=== PATIENT | female | born 2000 | race Caucasian/White ===

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

== ENCOUNTER 2021-10-02 07:55 | Emergency (ER) | payer BC, OTHER ==
[2021-10-02 08:10] VITALS: RESP 18; TEMP 97.9
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
[2021-10-02 09:12] LABS: Basophils % (A) 0 %; Eosinophils # (A) 0.1 k/uL (0-0.7); Eosinophils % (A) 1 %; HCT 41.8 % (34.0-46.0); Lymphocytes # (A) 2.2 k/uL (1.0-4.8); Lymphocytes % (A) 21 %; MCH 30.9 pg (25.0-35.0); MCHC 35.9 g/dL (31.0-37.0); MCV 86.1 fL (80.0-100.0); Mean Platelet Volume 7.9; Monocytes # (A) 0.5 k/uL (0-1.0); Monocytes % (A) 5 %; Neutrophils # (A) 7.4 k/uL (1.3-7.7); Neutrophils % (A) 71 %; Platelet Count 255 k/uL (150-450); RBC 4.86 m/uL (3.80-5.40); RDW 12.8 % (11.5-15.5); WBC 10.4 k/uL (3.8-10.6)
[2021-10-02 09:32] LABS: ALT 26 U/L (4-34); AST 30 U/L (14-36); African American GFR (CKD) >90 (>60 ml/min/1.73 sqM); Albumin 4.9 g/dL (3.5-5.0); Alcohol <10 mg/dL; Alkaline Phosphatase 78 U/L (38-126); Anion Gap 12 mmol/L; Blood Urea Nitrogen 8 mg/dL (7-17); Carbon Dioxide 21 mmol/L (22-30); Chloride 105 mmol/L (98-107); Creatine Kinase 93 U/L (30-135); Glucose 119 mg/dL (74-99); Lipase 59 U/L (23-300); Magnesium 1.7 mg/dL (1.6-2.3); Non-African American GFR(CKD) >90 (>60 ml/min/1.73 sqM); Potassium 3.8 mmol/L (3.5-5.1); Sodium 138 mmol/L (137-145); Total Bilirubin 0.5 mg/dL (0.2-1.3); Total Protein 8.5 g/dL (6.3-8.2)
[2021-10-02 10:06] LABS: Amphetamine Screen,Urine Not Detected (NotDetected); Barbiturate Screen,Urine Not Detected (NotDetected); Benzodiazepines Screen,Urine Not Detected (NotDetected); Cocaine Screen,Urine Not Detected (NotDetected); Methadone Screen, Urine Not Detected (NotDetected); Opiate Screen,Urine Not Detected (NotDetected); Oxycodone Screen, Urine Not Detected (NotDetected); Phencyclidine Screen,Urine Not Detected (NotDetected); Tricyclic Antidepressant,Urine Not Detected (NotDetected); Urn Cannabinoid Scrn Detected (NotDetected)
[2021-10-02 11:40] VITALS: BP 124/77; PULSE 97
[2021-10-03 00:39] LABS: Urine Barbiturate Negative (Negative); Urine Cocaine Negative (Negative); Urine Methadone Negative (Negative); Urine Opiates Negative (Negative); Urine Phencyclidine Negative (Negative)
== END 2021-10-02 11:40 | disposition home or self-care (01) ==
LOC: EC 07:55
DX: R00.2 Palpitations (principal); R11.0 Nausea; T50.905A Adverse effect of unspecified drugs, medicaments and biological substances, initial encounter
CPT/HCPCS: 36415; 80053; 80306; 80320; 82550; 83690; 83735; 85025; 99284

== ENCOUNTER 2024-03-12 20:07 | Emergency (ER) | payer BC ==
[2024-03-12 20:43] VITALS: RESP 20; TEMP 98
--- NOTE | 2024-03-12 21:07 | ED ---
Abdominal Pain HPI - General Source: patient, RN notes reviewed Mode of arrival: ambulatory Limitations: no limitations <Jessica Killian - Last Filed: 03/12/24 21:04> <Mor Hagen - Last Filed: 03/12/24 23:33> - General Chief Complaint: Abdominal Pain Stated Complaint: abd pain cramping 5 weeks Time Seen by Provider: 03/12/24 20:20 - History of Present Illness Initial Comments: Quick Note-this is a 23-year-old female presents emergency department chief complaint of diffuse abdominal pain and cramping. Patient states that she did an at home test on 03/08 which came back positive. Patient states that her last menstrual period was 02/11/2024. Patient denies vaginal bleeding or previous . (Jessica Killian) Dictation was produced using [employer] dictation software. please excuse any grammatical, word or spelling errors. Chief Complaint: 23-year-old female with pelvic pain History of Present Illness: Patient is a 23-year-old female she is found that she was within the last couple weeks on a urine test at primary care physician's office. Today at around noon she started to develop some pelvic cramping. Patient was concerned decided come to the emergency department to be evaluated. No vaginal discharge. At the time of my evaluation patient states that her pain had resolved. She believes that she is approximately 5 weeks . The ROS documented in this emergency department record has been reviewed and confirmed by me. Those systems with pertinent positive or negative responses have been documented in the HPI. All other systems are other negative and/or noncontributory. (Mor Hagen) - Related Data Home Medications Medication Instructions Recorded Confirmed No Known Home Medications 10/02/21 10/02/21 Allergies Allergy/AdvReac Type Severity Reaction Status Date / Time No Known Allergies Allergy Verified 10/02/21 09:09 Review of Systems ROS Other: All systems not noted in ROS Statement are negative. <Jessica Killian - Last Filed: 03/12/24 21:04> ROS Other: All systems not noted in ROS Statement are negative. <Mor Hagen - Last Filed: 03/12/24 23:33> ROS Statement: Those systems with pertinent positive or pertinent negative responses have been documented in the HPI. Past Medical History Past Medical History: No Reported History History of Any Multi-Drug Resistant Organisms: None Reported Past Surgical History: No Surgical Hx Reported Past Psychological History: No Psychological Hx Reported Smoking Status: Never smoker Past Alcohol Use History: None Reported Past Drug Use History: None Reported <Jessica Killian - Last Filed: 03/12/24 21:04> General Exam Limitations: no limitations <Jessica Killian - Last Filed: 03/12/24 21:04> <Mor Hagen - Last Filed: 03/12/24 23:33> - General Exam Comments Initial Comments: Visual Physical Exam Vital signs reviewed General: Well-appearing, nontoxic, no acute distress. Head: Normocephalic, atraumatic Eyes: PERRLA, EOMI ENT: Airway patent Chest: Nonlabored breathing Skin: No visual rash, normal skin tone Neuro: Alert and oriented 3 Musculoskeletal: No gross abnormalities (Jessica Killian) PHYSICAL EXAM: General Impression: Alert and oriented x3, not in acute distress HEENT: Normocephalic atraumatic, extra-ocular movements intact, pupils equal and reactive to light bilaterally, mucous membranes moist. Cardiovascular: Heart regular rate and rhythm Chest: Able to complete full sentences, no retractions, no tachypnea Abdomen: abdomen soft, non-tender, non-distended, no organomegaly Musculoskeletal: Pulses present and equal in all extremities, no peripheral edema Motor: no focal deficits noted Neurological: CN II-XII grossly intact, no focal motor or sensory deficits noted Skin: Intact with no visualized rashes Psych: Normal affect and mood (Mor Hagen) Course Vital Signs 03/12/24 20:19 Temperature 98 F Pulse Rate 102 H Respiratory 20 Rate Blood Pressure 154/74 O2 Sat by Pulse 100 Oximetry Medical Decision Making <Jessica Killian - Last Filed: 03/12/24 21:04> - Lab Data Result diagrams: 03/12/24 21:32 03/12/24 21:32 <Mor Hagen - Last Filed: 03/12/24 23:33> - Medical Decision Making I completed the quick note portion of this chart signed Jessica Killian PA-C (Jessica Killian) Was pt. sent in by a medical professional or institution (MEENA Pearce, LABOR AND DELIVERY REGISTERED NURSE, urgent care, hospital, or care home...) When possible be specific @ -No Did you speak to anyone other than the patient for history (EMS, parent, family, police, friend...)? What history was obtained from this source @ -No Did you review nursing and triage notes (agree or disagree)? Why? @ -I reviewed and agree with nursing and triage notes Were old charts reviewed (outside hosp., previous admission, EMS record, old EKG, old radiological studies, urgent care reports/EKG's, care home records)? Report findings @ -No old charts were reviewed Differential Diagnosis (chest pain, altered mental status, abdominal pain women, abdominal pain men, vaginal bleeding, musculoskeletal, weakness, fever, dyspnea, syncope, headache, dizziness, GI bleed, back pain, seizure, CVA, palpatations, mental health)? @ -Differential Abdominal Pain Women: Appendicitis, Cholecystitis, diverticulosis, ischemic bowel, pancreatitis, hepatitis, UTI, gastroenteritis, AAA, incarcerated hernia, bowel obstruction, constipation, inflammatory bowel, hepatitis, peptic ulcer disease, splenic infarction, perforated viscus, vulvitis, ovarian torsion, PID, kidney stone, placenta abruption, this is not meant to be an all-inclusive list EKG interpreted by me (3pts min.). @ -None done X-rays interpreted by me (1pt min.). @ -None done CT interpreted by me (1pt min.). @ -None done U/S interpreted by me (1pt. min.). @ -Ultrasound pelvis shows no IUP What testing was considered but not performed or refused? (CT, X-rays, U/S, labs)? Why? @ -None What meds were considered but not given or refused? Why? @ -None Did you discuss the management of the patient with other professionals (professionals i.e. MEENA Pearce, LABOR AND DELIVERY REGISTERED NURSE, lab, RT, psych nurse, socially responsible investment adviser, acupressure therapist, teacher, aviation tactical readiness officer, high risk case manager)? Give summary @ -No Was smoking cessation discussed for >3mins.? @ -No Was critical care preformed (if so, how long)? @ -No Were there social determinants of health that impacted care today? How? (Homelessness, low income, unemployed, alcoholism, drug addiction, transportation, low edu. Level, literacy, decrease access to med. care, [facility], rehab)? @ -No Was there de-escalation of care discussed even if they declined (Discuss DNR or withdrawal of care, Hospice)? DNR status @ -No What co-morbidities impacted this encounter? (DM, HTN, Smoking, COPD, CAD, Cancer, CVA, ARF, Chemo, Hep., AIDS, mental health diagnosis, sleep apnea, morbid obesity)? @ -None Was patient admitted / discharged? Hospital course, mention meds given and route, prescriptions, significant lab abnormalities, going to OR and other pertinent info. @ -23-year-old female allegedly presents with pelvic pain. Vital signs stable. Patient well-appearing patient and symptomatic at the bedside. Beta quant is 144. Ultrasound pelvis is unremarkable. Patient reevaluated b edside 1130 in stable medical addition. Patient given prescription for 48-hour beta quant. Advised follow-up with CONFERENCE CENTER COORDINATOR. Return precautions discussed. Undiagnosed new problem with uncertain prognosis? @ -No Drug Therapy requiring intensive monitoring for toxicity (Heparin, Nitro, Insulin, Cardizem)? @ -No Were any procedures done? @ -No Diagnosis/symptom? Acute, or Chronic, or Acute on Chronic? Uncomplicated (without systemic symptoms) or Complicated (systemic symptoms)? @ -Pelvic pain in Side effects of treatment? @ -No Exacerbation, Progression, or Severe Exacerbation? @ -No Poses a threat to life or bodily function? How? (Chest pain, USA, [place], pneumonia, PE, COPD, DKA, ARF, appy, cholecystitis, CVA, Diverticulitis, Homicidal, Suicidal, threat to staff... and all critical care pts) @ -No (Mor Hagen) - Lab Data Lab Results 03/12/24 03/12/24 03/12/24 Range/Units 20:41 20:41 21:32 WBC 11.0 H (3.8-10.6) k/uL RBC 5.03 (3.80-5.40) m/uL Hgb 14.5 (11.4-16.0) gm/dL Hct 45.2 (34.0-46.0) % MCV 89.8 (80.0-100.0) fL MCH 28.9 (25.0-35.0) pg MCHC 32.2 (31.0-37.0) g/dL RDW 12.7 (11.5-15.5) % Plt Count 210 (150-450) k/uL MPV 8.9 Neutrophils % 70 % Lymphocytes % 21 % Monocytes % 6 % Eosinophils % 1 % Basophils % 1 % Neutrophils # 7.8 H (1.3-7.7) k/uL Lymphocytes # 2.3 (1.0-4.8) k/uL Monocytes # 0.7 (0-1.0) k/uL Eosinophils # 0.1 (0-0.7) k/uL Basophils # 0.1 (0-0.2) k/uL Sodium (137-145) mmol/L Potassium (3.5-5.1) mmol/L Chloride (98-107) mmol/L Carbon Dioxide (22-30) mmol/L Anion Gap mmol/L BUN (7-17) mg/dL Creatinine (0.52-1.04) mg/dL Est GFR (CKD-EPI)AfAm (>60 ml/min/1.73 sqM) Est GFR (CKD-EPI)NonAf (>60 ml/min/1.73 sqM) Glucose (74-99) mg/dL Calcium (8.4-10.2) mg/dL Total Bilirubin (0.2-1.3) mg/dL AST (14-36) U/L ALT (4-34) U/L Alkaline Phosphatase (38-126) U/L Total Protein (6.3-8.2) g/dL Albumin (3.5-5.0) g/dL HCG, Quant mIU/mL Urine Color Yellow Urine Appearance Slightly Cloudy H (Clear) Urine pH 5.0 (5.0-8.0) Ur Specific [place] 1.030 (1.001-1.035) Urine Protein Negative (Negative) Urine Glucose (UA) Negative (Negative) Urine Ketones Negative (Negative) Urine Blood Negative (Negative) Urine Nitrite Negative (Negative) Urine Bilirubin Negative (Negative) Urine Urobilinogen <2.0 (<2.0) mg/dL Ur Leukocyte Esterase Negative (Negative) Urine RBC 3 (0-5) /hpf Urine WBC 1 (0-5) /hpf Ur Squamous Epith Cells 4 (0-4) /hpf Calcium Oxalate Crystal Many H (None) /hpf Urine Bacteria Rare H (None) /hpf Urine Mucus Occasional H (None) /hpf Urine HCG, Qual Detected (Not Detectd) 03/12/24 Range/Units 21:32 WBC (3.8-10.6) k/uL RBC (3.80-5.40) m/uL Hgb (11.4-16.0) gm/dL Hct (34.0-46.0) % MCV (80.0-100.0) fL MCH (25.0-35.0) pg MCHC (31.0-37.0) g/dL RDW (11.5-15.5) % Plt Count (150-450) k/uL MPV Neutrophils % % Lymphocytes % % Monocytes % % Eosinophils % % Basophils % % Neutrophils # (1.3-7.7) k/uL Lymphocytes # (1.0-4.8) k/uL Monocytes # (0-1.0) k/uL Eosinophils # (0-0.7) k/uL Basophils # (0-0.2) k/uL Sodium 139 (137-145) mmol/L Potassium 3.9 (3.5-5.1) mmol/L Chloride 106 (98-107) mmol/L Carbon Dioxide 25 (22-30) mmol/L Anion Gap 8 mmol/L BUN 7 (7-17) mg/dL Creatinine 0.61 (0.52-1.04) mg/dL Est GFR (CKD-EPI)AfAm >90 (>60 ml/min/1.73 sqM) Est GFR (CKD-EPI)NonAf >90 (>60 ml/min/1.73 sqM) Glucose 101 H (74-99) mg/dL Calcium 9.8 (8.4-10.2) mg/dL Total Bilirubin 0.4 (0.2-1.3) mg/dL AST 26 (14-36) U/L ALT 28 (4-34) U/L Alkaline Phosphatase 63 (38-126) U/L Total Protein 8.5 H (6.3-8.2) g/dL Albumin 5.0 (3.5-5.0) g/dL HCG, Quant 144.9 mIU/mL Urine Color Urine Appearance (Clear) Urine pH (5.0-8.0) Ur Specific [place] (1.001-1.035) Urine Protein (Negative) Urine Glucose (UA) (Negative) Urine Ketones (Negative) Urine Blood (Negative) Urine Nitrite (Negative) Urine Bilirubin (Negative) Urine Urobilinogen (<2.0) mg/dL Ur Leukocyte Esterase (Negative) Urine RBC (0-5) /hpf Urine WBC (0-5) /hpf Ur Squamous Epith Cells (0-4) /hpf Calcium Oxalate Crystal (None) /hpf Urine Bacteria (None) /hpf Urine Mucus (None) /hpf Urine HCG, Qual (Not Detectd) Disposition <Jessica Killian - Last Filed: 03/12/24 21:04> Is patient prescribed a controlled substance at d/c from ED?: No Time of Disposition: 23:33 <Mor Hagen - Last Filed: 03/12/24 23:33> Clinical Impression: Disposition: HOME SELF-CARE Condition: Good Instructions (If sedation given, give patient instructions): (ED) Additional Instructions: go to lab for 48 hour hcg blood test Referrals: Jamie Martinez MD [STAFF PHYSICIAN] - 1-2 days
[2024-03-12 21:16] LABS: Bacteria,Urine Rare /hpf; Calcium Oxalate Crystals,Urine Many /hpf; Mucus,Urine Occasional /hpf; RBC,Urine 3 /hpf (0-5); Squamous Epithelial Cell,Urine 4 /hpf (0-4); WBC,Urine 1 /hpf (0-5)
[2024-03-12 21:19] LABS: Appearance,Urine Slightly Cloudy (Clear); Color,Urine Yellow
[2024-03-12 21:20] LABS: Bilirubin,Urine Negative (Negative); Blood,Urine Negative (Negative); Glucose,Urine (UA) Negative (Negative); Ketones,Urine Negative (Negative); Leukocyte Esterase,Urine Negative (Negative); Nitrite,Urine Negative (Negative); Protein,Urine Negative (Negative); Urobilinogen,Urine <2.0 mg/dL (<2.0)
--- NOTE | 2024-03-12 21:41 | US ---
EXAMINATION TYPE: Transabdominal DATE OF EXAM: 03/12/2024 9:25 PM COMPARISON: 12/29/2018. CLINICAL INDICATION: Female, 23 years old with history of abdominal pain, LMP 02/10 (+ Hcg 03/08/24); cr amping EXAM PERFORMED: Transabdominal (TA) EXAM MEASUREMENTS: GESTATIONAL AGE / DATING Physician Established: Not yet established Dates by LMP: (4 weeks/2 days) EDC: 11/17/2024 Dates by First Scan: No previous this is first scan Dates by Current Scan for: No IUP seen at this time MATERNAL ANATOMY Uterus: 7.6 x 5.2 x 6.3 cm Right Ovary:3.9 x 2.2 x 3.2 cm Left Ovary: 3.0 x 1.6 x 2.2 cm Post CDS / Adnexa: wnl Presence of free fluid: no Presence of corpus luteal cyst: no Presence of subchorionic bleed: no GESTATION / SURVEY IUP: No IUP seen at this time Beta HcG (if available): Not available at this time IMPRESSION: No evidence of intrauterine gestational sac, correlate with B-hCG. If positive, this could represent early , ectopic or spontaneous . Follow up pelvic ultrasound in 5-7 days a nd serial beta hCG studies are recommended.
[2024-03-12 22:02] LABS: Basophils # (A) 0.1 k/uL (0-0.2); Basophils % (A) 1 %; Eosinophils # (A) 0.1 k/uL (0-0.7); Eosinophils % (A) 1 %; HCT 45.2 % (34.0-46.0); HGB 14.5 gm/dL (11.4-16.0); Lymphocytes # (A) 2.3 k/uL (1.0-4.8); Lymphocytes % (A) 21 %; MCH 28.9 pg (25.0-35.0); MCHC 32.2 g/dL (31.0-37.0); MCV 89.8 fL (80.0-100.0); Mean Platelet Volume 8.9; Monocytes # (A) 0.7 k/uL (0-1.0); Monocytes % (A) 6 %; Neutrophils # (A) 7.8 k/uL (1.3-7.7); Neutrophils % (A) 70 %; Platelet Count 210 k/uL (150-450); RBC 5.03 m/uL (3.80-5.40); RDW 12.7 % (11.5-15.5)
[2024-03-12 22:57] LABS: ALT 28 U/L (4-34); AST 26 U/L (14-36); African American GFR (CKD) >90 (>60 ml/min/1.73 sqM); Alkaline Phosphatase 63 U/L (38-126); Anion Gap 8 mmol/L; Blood Urea Nitrogen 7 mg/dL (7-17); Calcium 9.8 mg/dL (8.4-10.2); Carbon Dioxide 25 mmol/L (22-30); Chloride 106 mmol/L (98-107); Glucose 101 mg/dL (74-99); Non-African American GFR(CKD) >90 (>60 ml/min/1.73 sqM); Potassium 3.9 mmol/L (3.5-5.1); Sodium 139 mmol/L (137-145); Total Bilirubin 0.4 mg/dL (0.2-1.3); Total Protein 8.5 g/dL (6.3-8.2)
[2024-03-12 23:14] LABS: HCG,Quantitative Serum 144.9 mIU/mL
[2024-03-12 23:56] VITALS: BP 121/90; PULSE 93
== END 2024-03-13 01:14 | disposition home or self-care (01) ==
LOC: EC 20:07
DX: O26.891 Other specified pregnancy related conditions, first trimester (principal); R10.2 Pelvic and perineal pain; Z3A.01 Less than 8 weeks gestation of pregnancy
CPT/HCPCS: 36415; 76801; 80053; 81001; 81025; 84702; 85025; 86900; 86901; 99284

== ENCOUNTER → 2024-03-14 | Outpatient (CLI) | payer BC | END | disposition home or self-care (01) | LOC: LABWHC1 11:12 | PROVIDERS: ATTEND Emergency Medicine | DX: Z34.90 Encounter for supervision of normal pregnancy, unspecified, unspecified trimester (principal) | CPT/HCPCS: 36415; 84702 ==

== ENCOUNTER 2024-07-26 18:51 | Outpatient (CLI) | payer BC ==
[2024-07-26 19:35] LABS: Appearance,Urine Clear (Clear); Bilirubin,Urine Negative (Negative); Blood,Urine Negative (Negative); Color,Urine Colorless; Glucose,Urine (UA) Negative (Negative); Ketones,Urine Negative (Negative); Leukocyte Esterase,Urine Negative (Negative); Nitrite,Urine Negative (Negative); PH, Urine 5.5 (5.0-8.0); Protein,Urine Negative (Negative); Specific Gravity,Urine 1.016 (1.001-1.035); Urobilinogen,Urine <2.0 mg/dL (<2.0)
[2024-07-26 19:55] VITALS: BP 115/65; PULSE 117; RESP 19; TEMP 98.4
--- NOTE | 2024-09-15 10:26 | P.MSEPDOC ---
Presenting Problems - Arrival Data Date of Arrival on Unit: 07/26/24 Time of Arrival on Unit: 18:51 Mode of Transport: Ambulatory - Complaint OB-Reason for Admission/Chief Complaint: Vaginal Bleeding Comment: 23 5/[address] villafana [facility] c/o, "bright red blood noted with bathroom use around 1200." No bleeding or signs of blood noted on external vag/rectal exam. Pt denies wearing pad in. No blood noted on underwear at this time. Medical History - Information : 1 Para: 0 Term: 0 : 0 Abortions: Spontaneous or Elective: 0 Number of Living Children: 0 - Gestational Age Gestational Age by MARTIN (wks/days): 23 Weeks and 5 Days Review of Systems - Review of Systems Constitutional: No problems Breast: No problems ENT: No problems Cardiovascular: No problems Respiratory: No problems Gastrointestinal: No problems Genitourinary: No problems Musculoskeletal: No problems Neurological: No problems Skin: No problems Vital Signs - Temperature Temperature: 98.4 F Temperature Source: Temporal Artery Scan - Pulse Pulse Oximetery Pulse Rate: 117 Pulse Assessment Method: Pulse Oximetry - Respirations Respiratory Rate: 19 Oxygen Delivery Method: Room Air O2 Sat by Pulse Oximetry: 99 - Blood Pressure Right Arm Blood Pressure: 115/65 Blood Pressure Mean: 81 Blood Pressure Source: Automatic Cuff Physician Notification - Physician Notified Physician Notified Date: 07/26/24 Physician Notified Time: 19:22 Physician: Nirmala Villafana New Order Received: Yes - Notification Comment Comment: Dr. Villafana called and given report on pt reporting to triage, complaints of bleeding with bathroom use, physicial assessment with left back flank tenderness to palpation noted, fht per doppler, toco, and vitals WNL. Order recieved from UA culture obtained and sent to lab and pt d/c home with follow up instructions and keep apt in office on 07/28/24. Return to triage if s/s worsen. Orders read back and confirmed. Maternal Triage Index - Maternal Triage Index Presenting for scheduled procedure w/no complaint: No - Stat/Priority 1 Stat Priority 1: No - Urgent/Priority 2 Urgent Priority 2: Yes Provider Notified: Nirmala Villafana Provider Notified Time: 19:22 Criteria Met for Priority 2: C/o spotting/bleeding Disposition - Disposition OB Disposition: Discharge to home, Written follow up instructions reviewed Discharge Date: 07/26/24 Discharge Time: 19:43 I agree with the RN Medical Screening Exam: Yes Case reviewed; plan agreed upon as documented in EMR&OBIX.: Yes Diagnosis: RELATED CONDITIONS, UNSPECIFIED, SECOND TRIMESTER
== END 2024-07-26 19:43 | disposition home or self-care (01) ==
LOC: FBPOP 18:51
PROVIDERS: ATTEND Obstetrics & Gynecology
DX: O46.92 Antepartum hemorrhage, unspecified, second trimester (principal); Z3A.23 23 weeks gestation of pregnancy
CPT/HCPCS: 81003; G0463; 99215

== ENCOUNTER 2024-10-09 02:24 | Emergency (ER) | payer BC, OTHER ==
[2024-10-09 02:45] VITALS: RESP 18
--- NOTE | 2024-10-09 03:44 | ED ---
General Adult HPI - General Chief complaint: Shortness of Breath Stated complaint: NASH 34 wks Time Seen by Provider: 10/09/24 03:44 Source: patient Mode of arrival: ambulatory Limitations: no limitations - History of Present Illness Initial comments: This patient is a 24-year-old woman approximately 34 weeks who presents to evaluation for approximately 3 days of upper respiratory symptoms and cough with burning substernal chest pains. She does have occasional yellow sputum. She had nasal and ear congestion. The patient has not noted leg pain or swelling. Onset/Timin -: days(s) Location: chest Quality: burning Consistency: intermittent Improves with: none Worsens with: other (Cough) Associated Symptoms: chest pain, cough, other Treatments Prior to Arrival: none - Related Data Home Medications Medication Instructions Recorded Confirmed Pnv 11/Iron Fum/Folic Acid/Om3 1 each PO DAILY 07/26/24 10/05/24 [[place] Dha Softgel] Previous Rx's Medication Instructions Recorded Dextromethorphan HBr [Delsym Cough] 15 mg PO Q4H PRN #16 tab 10/09/24 diphenhydrAMINE [Benadryl] 25 mg PO QID PRN #16 capsule 10/09/24 Allergies Allergy/AdvReac Type Severity Reaction Status Date / Time No Known Allergies Allergy Verified 10/11/24 18:32 Review of Systems ROS Statement: Those systems with pertinent positive or pertinent negative responses have been documented in the HPI. ROS Other: All systems not noted in ROS Statement are negative. Constitutional: Denies: fever, chills, weakness ENT: Reports: congestion. Denies: ear pain Respiratory: Reports: as per HPI, cough. Denies: dyspnea, wheezes Cardiovascular: Reports: as per HPI, chest pain Gastrointestinal: Denies: abdominal pain, nausea, vomiting Genitourinary: Denies: dysuria, hematuria, discharge, abnormal menses Musculoskeletal: Denies: back pain Skin: Denies: rash Neurological: Denies: headache, weakness Past Medical History Past Medical History: No Reported History History of Any Multi-Drug Resistant Organisms: None Reported Past Surgical History: No Surgical Hx Reported Past Psychological History: No Psychological Hx Reported Smoking Status: Former smoker General Exam Limitations: no limitations General appearance: alert, in no apparent distress Head exam: Present: atraumatic, normocephalic Eye exam: Present: normal appearance. Absent: scleral icterus, nystagmus Neck exam: Present: normal inspection Respiratory exam: Present: normal lung sounds bilaterally. Absent: respiratory distress, wheezes, rales, rhonchi, stridor, accessory muscle use Cardiovascular Exam: Present: regular rate, normal rhythm, normal heart sounds. Absent: systolic murmur, diastolic murmur, rubs, gallop GI/Abdominal exam: Present: soft. Absent: distended, tenderness, guarding, rebound, rigid, mass Extremities exam: Present: normal inspection, normal capillary refill. Absent: pedal edema, calf tenderness Back exam: Present: normal inspection. Absent: CVA tenderness (R), CVA tenderness (L) Neurological exam: Present: alert Skin exam: Present: warm, dry, intact, normal color. Absent: rash Course Vital Signs 10/09/24 10/09/24 02:40 05:08 Temperature 97.7 F 98.3 F Pulse Rate 118 H 107 H Respiratory 18 Rate Blood Pressure 137/84 123/87 O2 Sat by Pulse 95 96 Oximetry Medical Decision Making - Medical Decision Making Was pt. sent in by a medical professional or institution (, PA, FISH HATCHERY MANAGER, urgent care, hospital, or shelter...) When possible be specific @ -[No] Did you speak to anyone other than the patient for history (EMS, parent, family, police, friend...)? What history was obtained from this source @ -[No] Did you review nursing and triage notes (agree or disagree)? Why? @ -[I reviewed and agree with nursing and triage notes] Were old charts reviewed (outside hosp., previous admission, EMS record, old EKG, old radiological studies, urgent care reports/EKG's, shelter records)? Report findings @ -[No old charts were reviewed] Differential Diagnosis (chest pain, altered mental status, abdominal pain women, abdominal pain men, vaginal bleeding, weakness, fever, dyspnea, syncope, headache, dizziness, GI bleed, back pain, seizure, CVA, palpatations, mental health, musculoskeletal)? @ -[Differential Fever: Pneumonia, viral URI, endocarditis, myocarditis, pericarditis, otitis, sinusitis, peritonsillar Abscess, retropharyngeal Abscess, epiglottitis, peritonitis, appendicitis, Clarisa cystitis, diverticulitis, hepatitis, colitis, UTI, PID, TOA, pyelonephritis, prostatitis, epididymitis, meningitis, encephalitis, pulmonary embolism, CVA, thyroid storm, pancreatitis, adrenal crisis, cavernous sinus thrombosis, this is not meant to be an all-inclusive list. EKG interpreted by me (3pts min.). @ -[As above] X-rays interpreted by me (1pt min.). @ -[None done] CT interpreted by me (1pt min.). @ -[None done] U/S interpreted by me (1pt. min.). @ -[None done] What testing was considered but not performed or refused? (CT, X-rays, U/S, labs)? Why? @ -[None] What meds were considered but not given or refused? Why? @ -[None] Did you discuss the management of the patient with other professionals (professionals i.e. , PA, FISH HATCHERY MANAGER, lab, RT, psych nurse, social media job titles, biomass facilitator, teacher, food safety officer, case sealer)? Give summary @ -[No] Was smoking cessation discussed for >3mins.? @ -[No] Was critical care preformed (if so, how long)? @ -[No] Were there social determinants of health that impacted care today? How? (Homelessness, low income, unemployed, alcoholism, drug addiction, transportation, low edu. Level, literacy, decrease access to med. care, [facility], rehab)? @ -[No] Was there de-escalation of care discussed even if they declined (Discuss DNR or withdrawal of care, Hospice)? DNR status @ -[No] What co-morbidities impacted this encounter? (DM, HTN, Smoking, COPD, CAD, Cancer, CVA, ARF, Chemo, Hep., AIDS, mental health diagnosis, sleep apnea, morbid obesity)? @ -[None] Was patient admitted / discharged? Hospital course, mention meds given and route, prescriptions, significant lab abnormalities, going to OR and other pertinent info. @ -[This patient is a 24-year-old woman here mainly to see what she is able to take for symptomatic relief associated with upper respiratory infection during . The patient clinically well-appearing. We discussed the medications available for use in . We discussed appropriate further care and follow-up and we discussed return parameters. Undiagnosed new problem with uncertain prognosis? @ -[No] Drug Therapy requiring intensive monitoring for toxicity (Heparin, Nitro, Insulin, Cardizem)? @ -[No] Were any procedures done? @ -[No] Diagnosis/symptom? @ -[Acute upper respiratory infection Acute, or Chronic, or Acute on Chronic? @ -[Acute Uncomplicated (without systemic symptoms) or Complicated (systemic symptoms)? @ -[Uncomplicated Side effects of treatment? @ -[No] Exacerbation, Progression, or Severe Exacerbation? @ -[No] Poses a threat to life or bodily function? How? (Chest pain, [place], [place], pneumonia, PE, COPD, DKA, ARF, appy, cholecystitis, CVA, Diverticulitis, Homicidal, Suicidal, threat to staff... and all critical care pts) @ -[No] - Lab Data Lab Results 10/09/24 Range/Units 03:50 Influenza Type A (PCR) Not Detected (Not Detectd) Influenza Type B (PCR) Not Detected (Not Detectd) RSV (PCR) Not Detected (Not Detectd) SARS-CoV-2 (PCR) Not Detected (Not Detectd) Disposition Clinical Impression: Upper respiratory infection Disposition: HOME SELF-CARE Condition: Good Instructions (If sedation given, give patient instructions): Upper Respiratory Infection (ED) Prescriptions: diphenhydrAMINE [Benadryl] 25 mg PO QID PRN #16 capsule PRN Reason: Congestion Dextromethorphan HBr [Delsym Cough] 15 mg PO Q4H PRN #16 tab PRN Reason: Cough Is patient prescribed a controlled substance at d/c from ED?: No Referrals: None,Stated [Primary Care Provider] - 1-2 days Maria A Anne DO [Doctor of Osteopathic Medicine] - 1-2 days
[2024-10-09 05:10] VITALS: BP 123/87; PULSE 107; TEMP 98.3
== END 2024-10-09 05:17 | disposition home or self-care (01) ==
LOC: EC 02:24
DX: O99.513 Diseases of the respiratory system complicating pregnancy, third trimester (principal); J06.9 Acute upper respiratory infection, unspecified; Z87.891 Personal history of nicotine dependence; Z3A.34 34 weeks gestation of pregnancy
CPT/HCPCS: 87636; 99284

== ENCOUNTER 2024-10-11 18:14 | Outpatient (CLI) | payer BC, OTHER ==
[2024-10-11 19:00] LABS: Appearance,Urine Cloudy (Clear); Bacteria,Urine Moderate /hpf; Bilirubin,Urine Negative (Negative); Blood,Urine Negative (Negative); Color,Urine Yellow; Glucose,Urine (UA) Negative (Negative); Ketones,Urine 3+ (Negative); Leukocyte Esterase,Urine Moderate (Negative); Mucus,Urine Many /hpf; Nitrite,Urine Negative (Negative); PH, Urine 5.5 (5.0-8.0); Protein,Urine 1+ (Negative); RBC,Urine 9 /hpf (0-5); Specific Gravity,Urine 1.024 (1.001-1.035); Squamous Epithelial Cell,Urine 7 /hpf (0-4); Urobilinogen,Urine <2.0 mg/dL (<2.0); WBC,Urine 4 /hpf (0-5)
[2024-10-11] MEDS: LACTATED RINGERS 1,000 ML IV ONE (19:15)
[2024-10-11] MEDS: ACETAMINOPHEN IV (For NPO) 1,000 MG in EMPTY BAG 1 BAG IVPB ONE (19:27)
[2024-10-11 20:18] VITALS: BP 139/81; PULSE 116; RESP 16; TEMP 97.8
--- NOTE | 2024-10-13 14:08 | P.MSEPDOC ---
Presenting Problems - Arrival Data Date of Arrival on Unit: 10/11/24 Time of Arrival on Unit: 18:14 Mode of Transport: Wheelchair - Complaint OB-Reason for Admission/Chief Complaint: Other Comment: Pt presents to triage with complaints of abdominal/lower back pain since 1300. Pain has gotten increasingly worse throughout the day and rates it 9/10. Pt also is unsure if she is leaking amniotic fluid starting at 1700. Pt upset and teary eyed and states she is scared and nervous. Medical History - Information : 1 Para: 0 Term: 0 : 0 Abortions: Spontaneous or Elective: 0 Number of Living Children: 0 - Gestational Age Gestational Age by MARTIN (wks/days): 34 Weeks and 5 Days Review of Systems - Review of Systems Constitutional: No problems Breast: No problems ENT: No problems Cardiovascular: No problems Respiratory: No problems Gastrointestinal: No problems Genitourinary: No problems Musculoskeletal: No problems Neurological: No problems Skin: No problems Comment: upper respiratory infection Vital Signs - Temperature Temperature: 97.8 F Temperature Source: Oral - Pulse Right Brachial Pulse Rate: 116 Pulse Assessment Method: Automatic Cuff - Respirations Respiratory Rate: 16 Oxygen Delivery Method: Room Air O2 Sat by Pulse Oximetry: 96 - Blood Pressure Right Arm Blood Pressure: 139/81 Blood Pressure Mean: 100 Blood Pressure Source: Automatic Cuff Medical Screen Scoring - Cervical Exam Membranes: Intact - Uterine Contractions Resting: Soft to palpation - Assessment - Baby A Baseline FHR: 120 Heart Rate - NICHD Category: Category I (Normal) NST: Reactive Physician Notification - Physician Notified Physician Notified Date: 10/11/24 Physician Notified Time: 20:00 Physician: Maria A Anne New Order Received: Yes (discharge) - Notification Comment Comment: RN reported that patient has had category 1 heart tones, cervical exam remains closed thick and high, patient is on 7 day of a upper respiratory infection and is coughing frequently. Dr. Anne sent a perscription for azithromycin to [facility] [address], patient may have plain robitussin, and should orally hydrate. Patient to be discharged home. Maternal Triage Index - Maternal Triage Index Presenting for scheduled procedure w/no complaint: No - Stat/Priority 1 Stat Priority 1: No - Urgent/Priority 2 Urgent Priority 2: No - Prompt/Priority 3 Prompt Priority 3: Yes Criteria Met for Priority 3: 34 5/ pain Disposition - Disposition OB Disposition: Discharge to home Discharge Date: 10/11/24 Discharge Time: 20:10 I agree with the RN Medical Screening Exam: Yes Case reviewed; plan agreed upon as documented in EMR&OBIX.: Yes Diagnosis: RELATED CONDITIONS, UNSPECIFIED, THIRD TRIMESTER
== END 2024-10-11 20:10 ==
LOC: FBPOP 18:14
PROVIDERS: ATTEND Obstetrics & Gynecology Obstetrics
DX: O26.893 Other specified pregnancy related conditions, third trimester (principal); R10.9 Unspecified abdominal pain; Z3A.34 34 weeks gestation of pregnancy
CPT/HCPCS: 59025; 99213; 96365; 96366; 84112; 81001; J0131; 96361; 99214

== ENCOUNTER 2024-11-15 06:00 | Inpatient (IN) | payer BC ==
[2024-11-15 16:42] LABS: Basophils % (A) 0 %; Eosinophils # (A) 0.1 k/uL (0-0.7); Eosinophils % (A) 1 %; HCT 33.7 % (34.0-46.0); HGB 11.3 gm/dL (11.4-16.0); Lymphocytes # (A) 1.7 k/uL (1.0-4.8); Lymphocytes % (A) 14 %; MCH 28.1 pg (25.0-35.0); MCHC 33.4 g/dL (31.0-37.0); MCV 84.1 fL (80.0-100.0); Mean Platelet Volume 7.6; Monocytes # (A) 0.5 k/uL (0-1.0); Monocytes % (A) 4 %; Neutrophils # (A) 9.6 k/uL (1.3-7.7); Neutrophils % (A) 80 %; Platelet Count 211 k/uL (150-450); RBC 4.01 m/uL (3.80-5.40); RDW 14.2 % (11.5-15.5)
[2024-11-15] MEDS ORDERED: PROMETHAZINE SUPPOSITORY 25 MG SUPP RECTAL PRN (17:33)
[2024-11-15] MEDS: LACTATED RINGERS 250 ML IV ONE (17:57)
[2024-11-16] MEDS: OXYTOCIN 30 UNITS/500 ML NS 30 UNIT in SALINE 1 500ML.BAG IV SCH (05:00)
[2024-11-16] MEDS ORDERED: TERBUTALINE 1 MG/ML VIAL SQ PRN (05:03)
[2024-11-16] MEDS ORDERED: LIDOCAINE 0.5% (PF) 5 MG/ML (50 ML SDV) SQ PRN (05:03)
[2024-11-16] MEDS ORDERED: METHYLERGONOVINE 0.2 MG/ML 1 ML AMP IM PRN (05:03)
[2024-11-16] MEDS ORDERED: miSOPROStoL 200 MCG TAB RECTAL PRN (05:03)
[2024-11-16] MEDS ORDERED: CARBOPROST TROMETHAMINE 250 MCG/ML 1 ML AMP IM PRN (05:03)
[2024-11-16] MEDS ORDERED: TRANEXAMIC 1,000 MG/100ML-NACL 1,000 MG in EMPTY BAG 1 BAG IV PRN (05:03)
[2024-11-16] MEDS ORDERED: OXYTOCIN 10 UNIT/ML 1 ML VIAL IM PRN (05:03)
[2024-11-16] MEDS ORDERED: miSOPROStoL 200 MCG TAB PO PRN (05:03)
[2024-11-16] MEDS ORDERED: OXYTOCIN 30 UNITS/500 ML NS 30 UNIT in SALINE 1 500ML.BAG IV SCH (05:15)
[2024-11-16] MEDS: LACTATED RINGERS 1,000 ML IV SCH (05:22)
[2024-11-16] MEDS ORDERED: MORPHINE SULFATE (PF) 0.3 MG/0.3 ML SYR ONE (05:43)
[2024-11-16] MEDS ORDERED: ONDANSETRON 4 MG/2 ML VIAL ONE (05:43)
[2024-11-16] MEDS: NALBUPHINE 10 MG/ML (10 ML MDV) IV PRN (06:09)
[2024-11-16] MEDS ORDERED: SODIUM CHLORIDE 0.9% 250 ML BAG ONE (14:21)
[2024-11-16] MEDS ORDERED: fentaNYL (PF) 50 MCG/ML 5 ML AMP ONE (14:21)
[2024-11-16] MEDS ORDERED: ROPIVACAINE 5 MG/ML 30 ML VIAL ONE (14:21)
[2024-11-17] MEDS: AMPICILLIN 2,000 MG in SODIUM CHLORIDE 0.9% 100 ML IVPB STA (00:08)
[2024-11-17] MEDS: AMPICILLIN 1,000 MG in SODIUM CHLORIDE 0.9% 50 ML IVPB SCH (04:26)
[2024-11-17] MEDS: CITRIC ACID-SODIUM CITRATE 15 ML CUP PO ONE ×2 (05:08→05:32)
[2024-11-17] MEDS: ceFAZolin 3 GM in SODIUM CHLORIDE 0.9% 100 ML IVPB ONE (05:15)
[2024-11-17] MEDS: ACETAMINOPHEN IV (For NPO) 1,000 MG in EMPTY BAG 1 BAG IVPB ONE ×2 (05:18→10:41)
[2024-11-17] MEDS ORDERED: METHYLERGONOVINE 0.2 MG/ML 1 ML AMP IM PRN (05:29)
[2024-11-17] MEDS ORDERED: miSOPROStoL 200 MCG TAB PO PRN (05:29)
[2024-11-17] MEDS ORDERED: SIMETHICONE 80 MG CHEWABLE PO PRN (06:38)
[2024-11-17] MEDS ORDERED: diphenhydrAMINE 25 MG CAP PO PRN (06:38)
[2024-11-17] MEDS ORDERED: diphenhydrAMINE 50 MG/ML 1 ML VIAL IVP PRN ×2 (06:38)
[2024-11-17] MEDS ORDERED: ZOLPIDEM 5 MG TAB PO PRN (06:38)
[2024-11-17] MEDS ORDERED: NALOXONE 0.4 MG/ML 1 ML VIAL IV PRN (06:38)
[2024-11-17] MEDS ORDERED: diphenhydrAMINE 50 MG CAP PO PRN (06:38)
[2024-11-17] MEDS ORDERED: LACTATED RINGERS 1,000 ML IV SCH (06:38)
[2024-11-17] MEDS ORDERED: ONDANSETRON 4 MG/2 ML VIAL IVP PRN (06:38)
[2024-11-17] MEDS ORDERED: METOCLOPRAMIDE 5 MG/ML 2 ML VIAL IVP PRN (06:38)
--- NOTE | 2024-11-17 06:38 | P.OP ---
Date of Procedure: 11/17/24 Preoperative Diagnosis: BP at 40-0/7 weeks, maternal fever, arrest of dilation, nonreassuring status Postoperative Diagnosis: Same Procedure(s) Performed: Primary low-transverse section Anesthesia: epidural Surgeon: Maria A Anne Stucco Plasterer #1: Jamie Martinez Estimated Blood Loss (ml): 900 IV fluids (ml): 700 Urine output (ml): 200 (Yellow) Pathology: other (Placenta) Condition: stable Disposition: observation Indications for Procedure: 24-year-old 1 para 0 at 40-0/7 weeks that presented for induction of labor last evening. Patient was admitted and Dilapan was placed. Patient was comfortable through the night. Patient had did start Pitocin at 5 AM on 11/16 patient progressed through the day becoming uncomfortable and requesting epidural. Patient was noted to be approximately 5 cm at that time. Patient made minimal to no progress through the next 24 hours. Currently patient is noted to be 6/80/-2 station patient has had an episode of late decelerations that resolved with Pitocin being ceased and IV fluids. Patient currently with maternal fever and IV Ofirmev is given. Patient is counseled on lack of progress through labor, maternal fever and heart tones. Patient states understanding and agrees to proceed with primary . Operative Findings: Viable male delivered at 606, weight of 8 pounds 9 ounces, Apgars of 8 and 9 at 1 and 5 minutes respectively, uterus tubes and ovaries are appreciated. Description of Procedure: Patient was taken back to the operating suite where spinal anesthesia was found to be adequate by the anesthesia department. She was prepped and draped in the normal sterile fashion in the dorsal supine position. Pannus retractor was placed on the abdomen as a means to elevate the pannus away from the operating field. A Pfannenstiel skin incision was made with a scalpel and carried through the underlying layer of fascia. The fascia was incised the midline and extended laterally. The superior aspect of the fascial incision was then grasped with Rose clamps, elevated and the underlying rectus muscle was dissected off sharply. The inferior aspect of the fascial incision was then grasped with Rose clamps, elevated and the underlying rectus muscle was dissected off sharply. The peritoneum was identified and entered sharply. The bladder blade was then inserted into the pelvis. A scalpel was used to enter the uterus with the hysterotomy incision. Clear fluid was obtained. was encountered in a vertex presentation, delivered in the usual fashion. Umbilical cord was doubly clamped and cut. Infant was handed off to waiting RN, spontaneous cry was noted. Placenta was delivered manually, uterus was cleared of all clots and debris. The uterus is exteriorized. The hysterotomy incision was closed with 0 Vicryl in a running locked fashion a second imbricating suture was performed. Hemostasis was noted. The pelvis was then cleared of all clots and debris. Uterus was returned to the abdomen. On inspection of the patient's hysterotomy incision hemostasis was noted. The peritoneum was then loosely reapproximated. The rectus muscles were inspected and found to be hemostatic. The fascia was then closed with 0 Vicryl in a running fashion from 1 lateral edge to the midline and the other lateral edge to the midline. The subcutaneous tissue was irrigated found to be hemostatic and closed with a running 3-0 Vicryl. The skin was closed with 4-0 Vicryl in a subcuticular fashion. All counts were noted to be correct x 3, patient and infant tolerated delivery well. Patient was taken back to her labor and delivery suite.
--- NOTE | 2024-11-17 06:38 | P.HPOB ---
History of Present Illness H&P Date: 11/15/24 Chief Complaint: IUP at 40 weeks 24-year-old G1, P0 at 40 weeks that presents to labor and delivery for induction of labor. Patient has been receiving routine care which has been essentially uncomplicated. Patient notes good movement, denies contractions or vaginal bleeding. blood work revealing a blood type of O-, rubella status immune, hepatitis B surface engine negative, HIV negative, RPR is nonreactive, grew beta strep cultures negative. Review of Systems Constitutional: Denies chills, Denies fatigue, Denies fever Ears, nose, mouth and throat: Denies headache Cardiovascular: Denies leg edema Respiratory: Denies dyspnea Gastrointestinal: Denies constipation, Denies diarrhea, Denies nausea, Denies vomiting Genitourinary: Reports Past Medical History Past Medical History: No Reported History History of Any Multi-Drug Resistant Organisms: None Reported Past Surgical History: No Surgical Hx Reported Smoking Status: Never smoker - Past Family History Mother History Unknown: Yes Family Medical History: No Reported History Medications and Allergies Home Medications Medication Instructions Recorded Confirmed Type Pnv 11/Iron Fum/Folic Acid/Om3 1 each PO DAILY 07/26/24 11/14/24 History [Wesnate Dha Softgel] Allergies Allergy/AdvReac Type Severity Reaction Status Date / Time No Known Allergies Allergy Verified 11/15/24 16:09 Exam Osteopathic Statement: *. No significant issues noted on an osteopathic structural exam other than those noted in the History and Physical/Consult. Intake and Output 11/15/24 11/15/24 11/15/24 06:59 14:59 22:59 Other: Weight 145.15 kg Targeted physical exam is performed this date General Is well-nourished well- developed female in no acute distress, breathing is nonlabored, heart has a regular rhythm, abdomen is gravid, heart tones are noted to be category 1 and she is not sia. Cervical exam closed 50/high The risks of Dilapan are discussed with patient benefits of procedure were reviewed and questions answered. Consent was obtained. A sterile lighted speculum space in the vagina and the cervix was visualized. The cervix and vagina was cleansed with Betadine. Dilapan was then grasped with a sponge stick and gently inserted through the external cervical os great Ester without force. This was repeated x 4. A total of 5 rods were inserted. At the conclusion of the procedure there was no vaginal bleeding the speculum and instruments were removed. Patient was noted to be stable. Will plan NST in the morning. IV pain medication per patient request. Results Result Diagrams: 11/15/24 16:31 Abnormal Lab Results - Last 24 Hours (Table) 11/15/24 Range/Units 16:31 WBC 12.0 H (3.8-10.6) k/uL Hgb 11.3 L (11.4-16.0) gm/dL Hct 33.7 L (34.0-46.0) % Neutrophils # 9.6 H (1.3-7.7) k/uL Assessment and Plan (1) Term Current Visit: Yes Status: Acute Code(s): Z34.90 - ENCNTR FOR SUPRVSN OF NORMAL , UNSP, UNSP TRIMESTER SNOMED Code(s): 98176343 Plan: 24-year-old G1, P0 at 40 weeks presents for induction of labor. Dilapan was placed as evening. Will plan to start Pitocin at 5 AM, remove Dilapan around 8 AM with amniotomy. Plan of care is discussed. All questions are answered.
[2024-11-17] MEDS: IBUPROFEN IV 800 MG in SODIUM CHLORIDE 0.9% 250 ML IV ONE (07:49)
[2024-11-17] MEDS ORDERED: IRON FUM PO SCH (09:00)
[2024-11-17] MEDS ORDERED: PNV PO SCH (09:00)
[2024-11-17] MEDS ORDERED: FOLIC ACID PO SCH (09:00)
[2024-11-17] MEDS ORDERED: [UNRECOGNIZED DRUG - OTHER] PO SCH (09:00)
[2024-11-17] MEDS: Rhogam IMMUNE GLOBULIN 1,500 UNIT/1 ML IM ONE (14:08)
[2024-11-17] MEDS: ceFAZolin 3 GM in SODIUM CHLORIDE 0.9% 100 ML IVPB SCH (14:09)
[2024-11-17] MEDS: IBUPROFEN 800 MG TAB PO SCH (17:23)
[2024-11-17] MEDS: SENNOSIDES-DOCUSATE SODIUM 1 EACH TAB PO SCH (21:05)
[2024-11-17] MEDS: PRENATAL VIT-IRON-FOLIC ACID 1 EACH TABLET PO SCH (21:34)
[2024-11-17] MEDS: ACETAMINOPHEN TAB 500 MG TAB PO SCH (21:55)
[2024-11-18 07:36] LABS: Basophils % (A) 0 %; Eosinophils # (A) 0.2 k/uL (0-0.7); Eosinophils % (A) 1 %; HCT 29.8 % (34.0-46.0); HGB 9.9 gm/dL (11.4-16.0); Lymphocytes # (A) 1.6 k/uL (1.0-4.8); Lymphocytes % (A) 10 %; MCH 28.5 pg (25.0-35.0); MCHC 33.1 g/dL (31.0-37.0); MCV 85.8 fL (80.0-100.0); Mean Platelet Volume 8.6; Monocytes # (A) 0.8 k/uL (0-1.0); Monocytes % (A) 5 %; Neutrophils # (A) 12.8 k/uL (1.3-7.7); Neutrophils % (A) 83 %; Platelet Count 209 k/uL (150-450); RBC 3.47 m/uL (3.80-5.40); RDW 14.4 % (11.5-15.5); WBC 15.5 k/uL (3.8-10.6)
--- NOTE | 2024-11-18 09:04 | P.PNOBGPC ---
Subjective - Subjective Principal diagnosis: Postop day 1, primary Interval history: Patient is doing well postoperatively. She is ambulating and voiding without difficulty. She is tolerating a regular diet without nausea or vomiting. She states her pain is well-controlled. Patient reports: Reports appetite normal, Reports voiding normally, Reports pain well controlled, Reports ambulating normally [place]: doing well (Special care nursery on oxygen) Objective - Vital Signs Latest vital signs: Vital Signs Temp Pulse Resp BP Pulse Ox 11/18/24 08:16 98.5 F 75 16 155/95 98 11/18/24 08:00 97.6 F 101 H 16 135/85 97 11/18/24 04:00 97.4 F L 103 H 16 90/67 98 11/17/24 22:00 97.9 F 106 H 16 124/83 99 11/17/24 17:49 98.4 F 90 16 109/66 99 11/17/24 13:00 96.0 F L 88 16 108/72 96 Intake and Output 11/17/24 11/18/24 11/18/24 22:59 06:59 14:59 Output Total 1700 600 Balance -1700 -600 Output: Urine 1700 600 Uretheral ([place]) 800 Other: # Voids 1 1 1 - Exam Extremities: Present: normal, edema Abdomen: Present: normal appearance, soft Incision: Present: normal, dry, intact Uterus: Present: normal, firm - Labs Labs: Abnormal Lab Results - Last 24 Hours (Table) 11/18/24 Range/Units 07:20 WBC 15.5 H (3.8-10.6) k/uL RBC 3.47 L (3.80-5.40) m/uL Hgb 9.9 L (11.4-16.0) gm/dL Hct 29.8 L (34.0-46.0) % Neutrophils # 12.8 H (1.3-7.7) k/uL Assessment and Plan (1) Term Current Visit: Yes Status: Acute Code(s): Z34.90 - ENCNTR FOR SUPRVSN OF NORMAL , UNSP, UNSP TRIMESTER SNOMED Code(s): 98618433 (2) Maternal fever during labor Current Visit: Yes Status: Acute Code(s): O75.2 - PYREXIA DURING LABOR, NOT ELSEWHERE CLASSIFIED SNOMED Code(s): 168735726 (3) Non-reassuring status Current Visit: Yes Status: Acute Code(s): PLW9569 - SNOMED Code(s): 436991899 (4) Status post section Current Visit: Yes Status: Acute Code(s): Z98.891 - HISTORY OF UTERINE SCAR FROM PREVIOUS SURGERY SNOMED Code(s): 822212044 Plan: Patient is doing well postoperatively. Will encourage increased ambulation. Continue routine postoperative care.
--- NOTE | 2024-11-18 11:41 | P.PN ---
Progress Note - Text 11/18/24 633am 24-year-old female status post with spinal Duramorph. Patient was seen and evaluated for postop pain control she has a VAS of 7 with no complaint of nausea vomiting or pruritus.
[2024-11-18] MEDS ORDERED: IBUPROFEN 800 MG TAB PO SCH (14:00)
--- NOTE | 2024-11-19 09:25 | P.PNOBGPC ---
Subjective - Subjective Principal diagnosis: Postop day 2 Interval history: Patient is doing well postoperatively. She is ambulating and voiding without difficulty. She is tolerating a regular diet without nausea or vomiting. She states pain is well-controlled. Lochia is noted to be minimal. remains in the nursery on half a liter of oxygen. Patient reports: Reports appetite normal, Reports voiding normally, Reports pain well controlled, Reports ambulating normally : doing well (Special care nursery) Objective - Vital Signs Latest vital signs: Vital Signs Temp Pulse Resp BP Pulse Ox 11/19/24 08:00 98.1 F 68 18 138/90 99 11/19/24 00:00 98.3 F 96 16 122/84 98 11/18/24 16:00 98.3 F 95 16 119/74 98 Intake and Output 11/18/24 11/19/24 11/19/24 22:59 06:59 14:59 Other: Voiding Method Toilet # Voids 2 2 - Exam Extremities: Present: normal, edema Abdomen: Present: normal appearance, soft Incision: Present: normal, dry, intact Uterus: Present: normal, firm Assessment and Plan (1) Term Current Visit: Yes Status: Acute Code(s): Z34.90 - ENCNTR FOR SUPRVSN OF NORMAL , UNSP, UNSP TRIMESTER SNOMED Code(s): 01427052 (2) Maternal fever during labor Current Visit: Yes Status: Acute Code(s): O75.2 - PYREXIA DURING LABOR, NOT ELSEWHERE CLASSIFIED SNOMED Code(s): 511207722 (3) Non-reassuring status Current Visit: Yes Status: Acute Code(s): YKL0458 - SNOMED Code(s): 878646544 (4) Status post section Current Visit: Yes Status: Acute Code(s): Z98.891 - HISTORY OF UTERINE SCAR FROM PREVIOUS SURGERY SNOMED Code(s): 721751707 Plan: Postop day 2, primary secondary to maternal fever, nonreassuring heart tones, arrest of dilation Patient is doing well postoperatively continue routine postoperative care.
--- NOTE | 2024-11-20 11:38 | P.DS ---
Providers Date of admission: 11/15/24 16:04 Expected date of discharge: 11/20/24 Attending physician: Maria A Anne Primary care physician: Stated None - Discharge Diagnosis(es) (1) Status post section Current Visit: Yes Status: Acute Hospital Course: The patient is a 24-year-old 1 para 0 admitted at 40 weeks by good dating parameters for induction of labor. Her was essentially uncomplicated and group B strep status is negative. She is known to be Rh- and received RhoGAM at 28 weeks. On labor and delivery, all signs were reassuring. She had Dilapan placed for cervical ripening and then underwent artificial rupture of membranes. Pitocin augmentation was started. She progressed to approximately 5 cm at which time an epidural catheter was placed for analgesia. She progressed ultimately to approximately 6 cm and made no further progress over the next 20 to 24 hours. She began to develop some concerns for d istress with a nonreassuring heart rate tracing. She was ultimately taken to the operating room where she was delivered by primary low-transverse section of a viable 8 pound 9 ounce baby boy with Apgars of 8 at 1 minute and 9 at 5 minutes. Her and postoperative course was unremarkable with vital signs remaining stable and her temperature was afebrile with throughout. The infant was admitted to the special care nursery for supplemental oxygen and prophylactic antibiotics. The patient was ultimately deemed stable for discharge on and postoperative day #3 when the infant was additionally cleared for discharge. She was discharged home to follow-up in the office in 2 weeks for an incision check in 6 weeks routinely. Discharge instructions included calling for any significantly increased bleeding or foul- smelling lochia, significantly increased fever abdominal pain, perineal complaints, breast complaints, incisional complaints, or anything else that concerned her. She was additionally instructed to have nothing in the vagina for at least 6 weeks time to include intercourse and to abstain from any heavy lifting over the same period of time. She was lastly instructed to do no driving until off of all pain medications or 2 weeks time, whichever came first. She understood her instructions and agrees to follow-up as noted above. Discharge medications included continued vitamins as she has opted to breast-feed. She was otherwise to use [id number] analgesic pain medications as needed. She was provided a prescription for oxycodone 5 mg, 1-2 p.o. every 6 hours as needed pain, #20 dispensed with no refills. Maternal blood type is O- and cord blood was sent for evaluation for the necessity of RhoGAM prior to discharge. Rubella status is immune. Discharge hemoglobin and hematocrit were 9.9 and 29.8 respectively. Procedures: #1. Dilapan cervical ripening #2. Artificial rupture of membranes #3. Pitocin induction #4. Epidural analgesia #5. Primary low-transverse section Patient Condition at Discharge: Stable Plan - Discharge Summary New Discharge Prescriptions: No Action Pnv 11/Iron Fum/Folic Acid/Om3 [Wesnate Dha Softgel] 1 each PO DAILY Discharge Medication List Pnv 11/Iron Fum/Folic Acid/Om3 [Wesnate Dha Softgel] 1 each PO DAILY 07/26/24 [History] Follow up Appointment(s)/Referral(s): Maria A Anne DO [Doctor of Osteopathic Medicine] - 12/27/24 10:15 am (Post C/S Appointment 11-29-2024 at 9:15am with Sophie) Discharge Disposition: HOME SELF-CARE
[2024-11-21 10:29] VITALS: BMI 47.2
[2024-11-21 15:32] VITALS: BP 135/77; PULSE 73; RESP 16; TEMP 98.5
--- NOTE | 2024-11-22 12:23 | CDI ---
Documentation Clarification Form Date: 11/22/2024 12:15:05 PM From: Divya Carvalho Admit Date: 11/15/2024 04:04:00 PM Patient Name: Elba Kumar Visit Number: [id number] Discharge Date: 11/21/2024 05:50:00 PM ATTENTION: The Clinical Documentation Specialists (CDI) and [facility] Coding Staff appreciate your assistance in clarifying documentation. Please respond to the clarification below the line at the bottom and electronically sign. The CDI & [facility] Coding staff will review the response and follow-up if needed. Please note: Queries are made part of the Legal Health Record. If you have any questions, please contact the author of this message via ITS. Doctor/Provider: Jamie Martinez, The final diagnosis of the pathology report states Mild to moderate acute membranousdeciduitiswith focal mild acute chorioamnionitisand focal microscopicmeconium staining. Coding guidelines do not allow coding professionals to code based on pathology results; therefore, clarification is requested. History/risk factors: First , RH negative, O blood type Clinical Indicators: Post term at 40 weeks, maternal fever, arrest of dilation and non-reassuring status. Treatment: IV Ofirmev, IV antibiotics and the primary low transverse section, Please clarify if you agree with the pathology report diagnosis of mild acute chorioamnionitis: [ ] Yes [ x ] No [ ] Other (please specify) [ ] Unable to determine The patient had no clinical evidence of chorioamnionitis, it is a post-delivery diagnosis, placenta was sent in case of clinical s/s in the patient for support/confirmation. GRETA
== END 2024-11-21 17:50 | disposition home or self-care (01) | DRG 787 ==
LOC: 4FBP 16:04
PROVIDERS: ADMIT Obstetrics & Gynecology Obstetrics; ATTEND Obstetrics & Gynecology Obstetrics
PROC: 0U7C7ZZ Dilation of Cervix, Via Natural or Artificial Opening (ICD-10-PCS; 2024-11-15)
PROC: 10907ZC Drainage of Amniotic Fluid, Therapeutic from Products of Conception, Via Natural or Artificial Opening (ICD-10-PCS; 2024-11-16)
PROC: 3E0DXGC Introduction of Other Therapeutic Substance into Mouth and Pharynx, External Approach (ICD-10-PCS; 2024-11-16)
PROC: 3E033VJ Introduction of Other Hormone into Peripheral Vein, Percutaneous Approach (ICD-10-PCS; 2024-11-16)
PROC: 3E0234Z Introduction of Serum, Toxoid and Vaccine into Muscle, Percutaneous Approach (ICD-10-PCS; 2024-11-17)
PROC: 10D00Z1 Extraction of Products of Conception, Low, Open Approach (ICD-10-PCS; principal; 2024-11-17 06:00)
DX: O48.0 Post-term pregnancy (principal); O75.2 Pyrexia during labor, not elsewhere classified; Z37.0 Single live birth; O76 Abnormality in fetal heart rate and rhythm complicating labor and delivery; O62.1 Secondary uterine inertia; O26.893 Other specified pregnancy related conditions, third trimester; Z67.41 Type O blood, Rh negative; Z3A.40 40 weeks gestation of pregnancy
CPT/HCPCS: 59200; 85025; 85461; 86850; 86900; 86901; 88307

== ENCOUNTER 2025-05-13 13:50 | Emergency (ER) | payer BC, OTHER ==
[2025-05-13 13:54] VITALS: TEMP 97.8
--- NOTE | 2025-05-13 14:33 | ED ---
Chest Pain HPI - General Chief Complaint: Chest Pain Stated Complaint: chest pain Time Seen by Provider: 05/13/25 14:25 Source: patient, RN notes reviewed Mode of arrival: ambulatory Limitations: no limitations - History of Present Illness Initial Comments: 24-year-old female presenting for chest pain x 3 days. Reports a worsening, sharp pain on the right side of her chest worse with inspiration. Pain radiates to the back and the right shoulder. Rates pain about an 8 currently. Endorses associated shortness of breath. States there is a mild contusion on her right chest that she noticed 2 days ago. 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 Patient does vape. Denies cough, fever, chills, vomiting. She had a 6 months ago otherwise denies any recent surgeries or travel. Denies hormone replacement therapy. - Related Data Home Medications Medication Instructions Recorded Confirmed Pnv 11/Iron Fum/Folic Acid/Om3 1 each PO DAILY 07/26/24 11/14/24 [Wesnate Dha Softgel] Previous Rx's Medication Instructions Recorded Azithromycin [Zithromax Z Pack] 0 tab PO DIRECTED #6 tab 05/13/25 Allergies Allergy/AdvReac Type Severity Reaction Status Date / Time No Known Allergies Allergy Verified 05/13/25 13:54 Review of Systems ROS Statement: Those systems with pertinent positive or pertinent negative responses have been documented in the HPI. ROS Other: All systems not noted in ROS Statement are negative. EKG Findings - EKG Results: EKG: interpreted by ERMD (EKG reveals sinus tachycardia with incomplete right bundle branch block otherwise no acute ST changes. Ventricular rate 106 bpm, IL interval 169, QRS duration 113, QT/QTc 335/397) Past Medical History Past Medical History: Asthma History of Any Multi-Drug Resistant Organisms: None Reported Past Surgical History: Section Past Anesthesia/Blood Transfusion Reactions: No Reported Reaction Past Psychological History: No Psychological Hx Reported Smoking Status: Vaper Past Alcohol Use History: None Reported Past Drug Use History: None Reported - Past Family History Mother History Unknown: Yes Family Medical History: No Reported History General Exam Limitations: no limitations Course Vital Signs 05/13/25 05/13/25 05/13/25 13:52 16:47 18:30 Temperature 97.8 F Pulse Rate 132 H 88 89 Respiratory 24 18 16 Rate Blood Pressure 169/93 138/90 143/96 O2 Sat by Pulse 99 98 95 Oximetry Chest Pain MDM - MDM Was pt. sent in by a medical professional or institution (, [facility], TREASURY CONSULTANT, urgent care, hospital, or longterm...) When possible be specific @ -No Did you speak to anyone other than the patient for history (EMS, parent, family, police, friend...)? What history was obtained from this source @ -No Did you review nursing and triage notes (agree or disagree)? Why? @ -I reviewed and agree with nursing and triage notes Were old charts reviewed (outside hosp., previous admission, EMS record, old EKG, old radiological studies, urgent care reports/EKG's, longterm records)? Report findings @ -No old charts were reviewed Differential Diagnosis (chest pain, altered mental status, abdominal pain women, abdominal pain men, vaginal bleeding, weakness, fever, dyspnea, syncope, headache, dizziness, GI bleed, back pain, seizure, CVA, palpatations, mental health, musculoskeletal)? @ -Differential Chest Pain: Stable Angina, Unstable Angina, STEMI, NSTEMI Aortic Dissection, Pneumothorax, Musculoskeletal, Esophageal Spasm GERD, Cholecystitis, Pancreatitis, Zoster, this is not meant to be an all-inclusive list. EKG interpreted by me (3pts min.). @ -As above X-rays interpreted by me (1pt min.). @ -Chest x-ray reveals right middle lobe hazy airspace opacity CT interpreted by me (1pt min.). @ -CT angio chest shows no evidence of central PE, right upper lung airspace opacity somewhat wedge-shaped could represent pulmonary infarct however no PE visualized, poor contrast timing U/S interpreted by me (1pt. min.). @ -None done What testing was considered but not performed or refused? (CT, X-rays, U/S, labs)? Why? @ -None What meds were considered but not given or refused? Why? @ -None Did you discuss the management of the patient with other professionals (professionals i.e. MEENA Pearce, TREASURY CONSULTANT, lab, RT, psych nurse, outreach and education social worker, clerk funeral detail, teacher, operations officer trust department, supportive employment case manager)? Give summary @ -No Was smoking cessation discussed for >3mins.? @ -No Was critical care preformed (if so, how long)? @ -No Were there social determinants of health that impacted care today? How? (Homelessness, low income, unemployed, alcoholism, drug addiction, transportation, low edu. Level, literacy, decrease access to med. care, senior care, rehab)? @ -No Was there de-escalation of care discussed even if they declined (Discuss DNR or withdrawal of care, Hospice)? DNR status @ -No What co-morbidities impacted this encounter? (DM, HTN, Smoking, COPD, CAD, Cancer, CVA, ARF, Chemo, Hep., AIDS, mental health diagnosis, sleep apnea, morbid obesity)? @ -None Was patient admitted / discharged? Hospital course, mention meds given and route, prescriptions, significant lab abnormalities, going to OR and other pertinent info. @ - discharged. 24-year-old female presenting for pleuritic right-sided chest pain x 3 days. Patient is tachycardic, satting 99% on room air, afebrile. Patient is well-appearing, in no acute distress. Heart and lungs are clear to auscultation bilaterally. There is a mild contusion over right sided chest however no reproducible tenderness. Provided with IV fluids and Toradol. Lab work remarkable for D-dimer 0.51, otherwise unremarkable. Normal white blood cell count. Chest x-ray reveals right middle lobe hazy airspace opacity. CT angio chest shows no evidence of central PE, right upper lung airspace opacity somewhat wedge-shaped could represent pulmonary infarct however no PE visualized, poor contrast timing. Discussed results with patient. Differential at this time includes pulmonary infarct secondary to possible pulmonary embolism versus pneumonia. I recommend admission for further evaluation including VQ scan and bilateral lower extremity ultrasounds. Patient states she is not able to stay in the hospital and would like to be discharged. Discussed potential risks associated with untreated pulmonary embolism, that this is potentially a life- threatening condition that could result in . Patient verbalizes understanding and opts for discharge. Will treat with outpatient antibiotics to cover for pneumonia, however strict return precautions given to patient and advised to follow-up closely with her PCP. Case was discussed with my ED attending Dr. Piedra. Undiagnosed new problem with uncertain prognosis? @ -No Drug Therapy requiring intensive monitoring for toxicity (Heparin, Nitro, Insulin, Cardizem)? @ -No Were any procedures done? @ -No Diagnosis/symptom? @ -Chest pain Acute, or Chronic, or Acute on Chronic? @ -Acute Uncomplicated (without systemic symptoms) or Complicated (systemic symptoms)? @ -Complicated Side effects of treatment? @ -No Exacerbation, Progression, or Severe Exacerbation? @ -No Poses a threat to life or bodily function? How? (Chest pain, [place], PA, pneumonia, PE, COPD, DKA, ARF, appy, cholecystitis, CVA, Diverticulitis, Homicidal, Suicidal, threat to staff... and all critical care pts) @ -Yes possibly Disposition Clinical Impression: Chest pain Disposition: HOME SELF-CARE Condition: Stable Instructions (If sedation given, give patient instructions): Chest Pain (ED) Additional Instructions: Take antibiotics as prescribed. Please return to the Emergency Department if symptoms worsen or any other concerns. Prescriptions: Azithromycin [Zithromax Z Pack] 0 tab PO DIRECTED #6 tab Is patient prescribed a controlled substance at d/c from ED?: No Referrals: None,Stated [Primary Care Provider] - 1-2 days Time of Disposition: 18:26
[2025-05-13] MEDS: KETOROLAC 15 MG/ML 1 ML VIAL IVP STA (14:42)
[2025-05-13] MEDS: SODIUM CHLORIDE 0.9% 1,000 ML IV STA (14:42)
[2025-05-13 14:45] LABS: Basophils # (A) 0.04 10*3/uL (0.00-0.10); Basophils % (A) 0.5 %; Eosinophils # (A) 0.17 10*3/uL (0.04-0.35); Eosinophils % (A) 2.1 %; HCT 40.7 % (37.2-46.3); HGB 13.7 g/dL (12.0-15.0); Lymphocytes # (A) 1.53 10*3/uL (0.90-5.00); Lymphocytes % (A) 18.5 %; MCHC 33.7 g/dL (32.0-37.0); MCV 80.3 fL (80.0-97.0); Mean Platelet Volume 10.5 fL (9.5-12.2); Monocytes # (A) 0.57 10*3/uL (0.20-1.00); Monocytes % (A) 6.9 %; Neutrophils # (A) 5.93 10*3/uL (1.80-7.70); Neutrophils % (A) 71.9 %; Platelet Count 238 10*3/uL (140-440); RBC 5.07 10*6/uL (4.10-5.20); RDW 14.2 % (11.5-14.5); WBC 8.25 10*3/uL (4.50-10.00)
[2025-05-13 14:55] LABS: HCG,Qualitative Serum Not Detected
[2025-05-13 14:57] LABS: ALT 23 U/L (4-34); AST 23 U/L (14-36); African American GFR (CKD) >90 (>60 ml/min/1.73 sqM); Albumin 4.7 g/dL (3.5-5.0); Alkaline Phosphatase 63 U/L (38-126); Anion Gap 11 mmol/L; Blood Urea Nitrogen 7 mg/dL (7-17); Calcium 9.8 mg/dL (8.4-10.2); Carbon Dioxide 25 mmol/L (22-30); Chloride 103 mmol/L (98-107); Glucose 90 mg/dL (74-99); Non-African American GFR(CKD) >90 (>60 ml/min/1.73 sqM); Potassium 3.7 mmol/L (3.5-5.1); Sodium 139 mmol/L (137-145); Total Bilirubin 0.5 mg/dL (0.2-1.3); Total Protein 7.7 g/dL (6.3-8.2)
[2025-05-13 15:05] LABS: INR 0.9 (<1.2); Partial Thromboplastin Time 25.2 sec (22.0-30.0); Prothrombin Time 10.6 sec (10.0-12.5)
--- NOTE | 2025-05-13 15:45 | XR ---
EXAMINATION TYPE: XR chest 2V DATE OF EXAM: 05/13/2025 3:26 PM COMPARISON: None CLINICAL INDICATION: Female, 24 years old with history of chest pain; [facility] TECHNIQUE: XR chest 2V Frontal and lateral views of the chest. FINDINGS: Lungs/Pleura: Right middle lobe hazy airspace opacities. There is no evidence of pleural effusion, fo wendy consolidation, or pneumothorax. Pulmonary vascularity: Unremarkable. Heart/mediastinum: Cardiomediastinal silhouette is unremarkable. Musculoskeletal: No acute osseous pathology. IMPRESSION: Right middle lobe hazy airspace opacities correlate for pneumonia. [facility], , 05/13/2025 3:43 PM
--- NOTE | 2025-05-13 18:02 | CT ---
EXAMINATION TYPE: CT angio chest DATE OF EXAM: 05/13/2025 5:33 PM COMPARISON: Chest radiograph from same day. CLINICAL INDICATION: Female, 24 years old with history of elevated D-dimer, chest pain; amy/chest vidal n TECHNIQUE/CONTRAST: CTA scan of the thorax is performed with IV Contrast, patient injected with 100 ml mL of Isovue 370, MIP images are created and reviewed these are created on a separate workstation.. CT DLP: 673.8 mGycm, Automated exposure control for dose reduction was used. FINDINGS: Lungs/Pleura: Wedge-shaped airspace opacity in the right upper lung posteriorly. 6 mm right lower lob e nodule series 411 image 80, likely benign given patient's age. No evidence of focal consolidation, pleural effusion or pneumothorax. Airway: Large airways are patent. Heart: Size within normal limits. No significant coronary artery calcifications. Vasculature: Limited evaluation due to bolus timing, no evidence for central pulmonary embolus. The lobar, segmental and subsegmental branches are limited due to bolus timing. The pulmonary artery is o f normal size. Mediastinum: No gross evidence of adenopathy. Musculoskeletal: No acute osseous abnormalities Soft Tissues/lymph nodes: Unremarkable. Lower neck: No significant findings. Upper Abdomen: No significant findings. Cortical thinning of the posterior left kidney superiorly sug gestive of prior injury. IMPRESSION: 1. No evidence of central pulmonary embolism. Limited evaluation of the segmental and subsegmental br anches. 2. Right upper lung airspace opacity which is somewhat wedge-shaped and could possibly represent pulm onary infarct however no pulmonary emboli are definitively visualized given poor contrast bolus timin g. 3. Trace bilateral pleural effusions 4. Right lower lobe pulmonary nodule measuring 6 mm which is likely benign given patient age. [facility], , 05/13/2025 5:59 PM
[2025-05-13 18:32] VITALS: BP 143/96; PULSE 89; RESP 16
== END 2025-05-13 18:31 | disposition home or self-care (01) ==
LOC: EC 13:50
DX: R07.89 Other chest pain (principal); F17.290 Nicotine dependence, other tobacco product, uncomplicated
CPT/HCPCS: 36415; 93005; 85379; 80053; 84484; 85025; 85610; 85730; 84703; 71046; 71275; 99285; 96374; 96361 ×2; J1885; Q9967; 99284